=== PATIENT | female | born 1995 | race Two or more races ===

== ENCOUNTER 2020-04-22 15:48 | Emergency (ER) | payer MEDICAID, OTHER ==
[~2020-04-22] VITALS: Ht 160 cm; Wt 87.1 kg
[2020-04-22] MEDS ORDERED: ACETAMINOPHEN/CODEINE#3 (300/30mg) TAB PO ONE (17:15)
[2020-04-22] MEDS ORDERED: ONDANSETRON ODT 4 MG TAB PO ONE (17:15)
[2020-04-22] MEDS ORDERED: cefTRIAXone SOD 1,000 MG VL IM ONE (17:15)
[2020-04-22 18:23] VITALS: BP 105/72
== END 2020-04-22 18:54 | disposition home or self-care (01) ==
LOC: ER 15:48
DX: J02.9 Acute pharyngitis, unspecified (principal); Z20.828 Contact with and (suspected) exposure to other viral communicable diseases
CPT/HCPCS: 36415; 71045; 87426; 87880; 96372; 99284; C9803; J0696; Q0162; U0003